=== PATIENT | male | born 1955 | race Caucasian/White ===

== ENCOUNTER → 2016-12-20 | Outpatient (CLI) | payer BC ==
[~2016-12-20] MED LIST: AMLO5TAB2 PO; HYDR25TA5 PO; RIVA1.5T PO
[2016-12-20 09:57] LABS: CHOLESTEROL/HDL RATIO 3.8
== END | disposition home or self-care (01) ==
LOC: C.LAB1850 08:23
PROVIDERS: ATTEND Nurse Practitioner Family
DX: Z00.00 Encounter for general adult medical examination without abnormal findings (principal); E78.00 Pure hypercholesterolemia, unspecified

== ENCOUNTER → 2017-01-01 | Outpatient (CLI) | payer BC ==
--- NOTE | 2017-01-01 12:23 | DIAGNOSTIC IMAGING REPORT ---
LEFT ANKLE MIN 3 VIEWS ROUTINE CLINICAL HISTORY: M25.572 Left ankle [id number] COMPARISON: None. DISCUSSION: There is bimalleolar soft tissue swelling. No fractures or dislocations are visualized. There are no erosive or destructive changes. There is a plantar calcaneal spur. IMPRESSION: Soft tissue swelling. No fractures identified. No destructive lesions are evident Electronically signed by: Isaías Watts M.D. 01/01/2017 12:21 PM Dictated Date/Time: 01/01/2017 12:21 PM
--- NOTE | 2017-01-01 12:24 | DIAGNOSTIC IMAGING REPORT ---
LEFT FOOT MIN 3 VIEWS ROUTINE CLINICAL HISTORY: Left foot pain COMPARISON: None. DISCUSSION: No acute fractures are visualized. There are degenerative changes at the level of the first metatarsal phalangeal joint with joint space narrowing and osteophyte formation. There is a plantar calcaneal spur. There are no erosive changes. IMPRESSION: 1. No acute fractures 2. 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 01/01/2017 12:23 PM Dictated Date/Time: 01/01/2017 12:22 PM
[2017-01-01 12:46] LABS: BASO % 0.2 %; BASO ABS # 0.01 K/uL (0-0.2); COMPLETE YES; EOS % 2.1 %; HEMATOCRIT 45.9 % (42-52); IG% 0.3 %; LYMPH % 33.4 %; LYMPH ABS # 2.05 K/uL (1.2-3.4); MEAN CELL VOLUME 94.4 fL (80-100); MEAN CORPUSCULAR HEMOGLOBIN 31.1 pg (25-34); MEAN CORPUSCULAR HGB CONC 32.9 g/dl (32-36); MEAN PLATELET VOLUME 9.8 fL (7.4-10.4); PLATELET COUNT 310 K/uL (130-400); RED BLOOD COUNT 4.86 M/uL (4.7-6.1); WHITE BLOOD COUNT 6.13 K/uL (4.8-10.8)
[2017-01-01 13:27] LABS: ALT/SGPT 28 U/L (12-78); AST/SGOT 21 U/L (15-37); BLOOD UREA NITROGEN 10 mg/dl (7-18); BUN/CREATININE RATIO 11.5 (10-20); CALCIUM 8.4 mg/dl (8.5-10.1); CARBON DIOXIDE 32 mmol/L (21-32); CHLORIDE 105 mmol/L (98-107); CREATININE 0.88 mg/dl (0.60-1.40); GLUCOSE 101 mg/dl (70-99); POTASSIUM 3.7 mmol/L (3.5-5.1); SODIUM 142 mmol/L (136-145); URIC ACID 9.5 mg/dl (2.6-7.2)
[2017-01-01 13:29] LABS: ALB/GLOB RATIO 0.9 (0.9-2); ALKALINE PHOSPHATASE 106 U/L (45-117); C-REACTIVE PROTEIN < 0.29 mg/dl (0-0.29); RHEUMATOID FACTOR < 10.0 U/mL (0-15)
[2017-01-01 14:01] LABS: LYME DISEASE AB IGG NEG (NEG); LYME DISEASE AB IGM NEG (NEG)
== END | disposition home or self-care (01) ==
LOC: C.RAD1850 11:37
PROVIDERS: ATTEND Nurse Practitioner Family
DX: M25.572 Pain in left ankle and joints of left foot (principal); M79.672 Pain in left foot

== ENCOUNTER → 2017-07-12 | Outpatient (CLI) | payer BC ==
[2017-07-12 12:07] LABS: BASO % 0.2 %; BASO ABS # 0.02 K/uL (0-0.2); COMPLETE YES; EOS % 1.3 %; HEMATOCRIT 48.7 % (42-52); IG% 0.2 %; LYMPH % 28.2 %; LYMPH ABS # 2.37 K/uL (1.2-3.4); MEAN CELL VOLUME 97.2 fL (80-100); MEAN CORPUSCULAR HEMOGLOBIN 33.1 pg (25-34); MEAN CORPUSCULAR HGB CONC 34.1 g/dl (32-36); MEAN PLATELET VOLUME 10.7 fL (7.4-10.4); MONO % 9.7 %; NEUT % 60.4 %; PLATELET COUNT 292 K/uL (130-400); RED BLOOD COUNT 5.01 M/uL (4.7-6.1); WHITE BLOOD COUNT 8.39 K/uL (4.8-10.8)
[2017-07-12 12:20] LABS: ALT/SGPT 25 U/L (12-78); BLOOD UREA NITROGEN 12 mg/dl (7-18); BUN/CREATININE RATIO 11.8 (10-20); CARBON DIOXIDE 32 mmol/L (21-32); CHLORIDE 100 mmol/L (98-107); CHOLESTEROL 195 mg/dl (0-200); CREATININE 0.99 mg/dl (0.60-1.40); GLUCOSE 97 mg/dl (70-99); POTASSIUM 3.5 mmol/L (3.5-5.1); SODIUM 137 mmol/L (136-145); URIC ACID 9.6 mg/dl (2.6-7.2)
[2017-07-12 12:23] LABS: ALB/GLOB RATIO 0.9 (0.9-2); ALKALINE PHOSPHATASE 102 U/L (45-117); AST/SGOT 23 U/L (15-37); CHOLESTEROL/HDL RATIO 2.5; HDL CHOLESTEROL 78 mg/dl; LDL CHOLESTEROL CALCULATED 95 mg/dl; TRIGLYCERIDES 112 mg/dl (0-150); VERY LOW DENSITY LIPOPROT CALC 22 mg/dl
== END | disposition home or self-care (01) ==
LOC: C.LAB1850 10:50
PROVIDERS: ATTEND Nurse Practitioner Family
DX: E78.00 Pure hypercholesterolemia, unspecified (principal); E79.0 Hyperuricemia without signs of inflammatory arthritis and tophaceous disease

== ENCOUNTER 2024-07-06 15:10 | Inpatient (IN) ==
[2024-07-06 15:44] LABS: Basophils # (auto) 0.03 K/uL (0.00-0.20); Basophils % (auto) 0.5 %; Eosinophils # (auto) 0.03 K/uL (0.00-0.50); Eosinophils % (auto) 0.5 %; Hematocrit (blood only) 42.7 % (42.0-52.0); Immature Granulocytes # (auto) 0.01 K/uL (0.01-0.20); Immature Granulocytes % (auto) 0.2 %; Lymphocytes # (auto) 1.33 K/uL (1.20-3.40); Lymphocytes % (auto) 21.3 %; Mean Corpuscular Hemoglobin 35.1 pg (25.0-34.0); Mean Corpuscular Hgb Conc 35.1 g/dL (32.0-36.0); Mean Platelet Volume 11.4 fL (9.4-12.4); Monocytes # (auto) 0.61 K/uL (0.11-0.59); Monocytes % (auto) 9.8 %; Neutrophils # (auto) 4.24 K/uL (1.40-6.50); Neutrophils % (auto) 67.7 %; Platelet Count 227 K/uL (130-400); RDW Coefficient of Variation 13.9 % (11.5-14.5); RDW Standard Deviation 51.1 fL (36.4-46.3); Red Blood Count 4.27 M/uL (4.70-6.10); White Blood Count 6.25 K/ul (4.8-10.8)
--- NOTE | 2024-07-06 16:01 | XRay Report ---
XR chest 1V not portable HISTORY: 68 years-old Male Weakness COMPARISON: None TECHNIQUE: PA view of chest FINDINGS: Metallic density coil type devices project over the upper chest. Cortex silhouette is upper limits of normal in size. Mild right hemidiaphragmatic elevation. No pneumothorax, pleural effusion or airspac e consolidation. Bones appear grossly intact. IMPRESSION: No acute process. ACT 112: Negative or not required by law. The above report was generated using voice recognition software. It may contain grammatical, syntax o r spelling errors. Electronically signed by: Thomas Khanna M.D. 07/06/2024 4:00 PM
[2024-07-06 16:11] LABS: Troponin I High Sensitivity 24.3 pg/ml (0-20)
[2024-07-06 16:13] LABS: INR 1.1 (0.9-1.1); Partial Thromboplastin Ratio 0.9; Partial Thromboplastin Time 23 Seconds (21-31); Prothrombin Time 11.4 Seconds (9.0-12.0)
[2024-07-06 16:20] LABS: Thyroid Stimulating Hormone 1.787 uIu/ml (0.300-4.500)
[2024-07-06 16:26] LABS: Albumin Globulin Ratio 1.3 (0.9-2); BUN Creatinine Ratio 17.3 (10-20); Bilirubin,Total 2.1 mg/dl (0.2-1.0); Calcium 8.8 mg/dl (8.6-10.3); Creatinine Clr Calc Pharmacy 99.3 ml/min; Magnesium 1.6 mg/dl (1.7-2.4); Potassium 3.8 mmol/L (3.5-5.1)
[2024-07-06] MEDS: SODIUM CHLORIDE 0.9% 1,000 ML IV ONE (17:23)
--- NOTE | 2024-07-06 17:23 | Emergency Department Note ---
Impression & Plan Bilateral leg weakness, Rhabdomyolysis, Elevated liver function tests ED Provider Note Name: HAYDE KISER Age: 68 Sex: Male Arrives Via: Walk-In Informant: Patient ED Provider: Eliud Valdez MD Chief Complaint: Leg weakness Impression: As per impressions above Medical Decision Makin-year-old gentleman arrives for evaluation of gradually worsening bilateral leg weakness primarily in the large muscle groups. He has ability to raise legs off bed but does not have much strength against them. Patellar reflexes are still somewhat intact. Did recently have a viral illness this concern for Guillain-Marks but given the elevated CK I suspect this is more of a rhabdomyolysis with possible viral inflammatory condition. This would also be more consistent with mildly elevated LFTs. He is not having any abdominal pain or tenderness palpation thus CT imaging of the abdomen pelvis is not necessary at this time. Given the weakness and the rhabdomyolysis will need to bring in for further evaluation. Triage/Nursing Notes reviewed by Me Differential:Infection, dehydration, metabolic abnormality, hypo/hyperglycemia, electrolyte disturbance, anemia, hypoxia, cardiac sources, intracerebral event, toxicologic, neurologic, as well as other pathologies. Vital Signs: reviewed and remarkable for mild hypertension on arrival Interventions: Normal saline bolus 1 L IV Labs:ED labs Reviewed by me and remarkable for moderately elevated LFTs compared to baseline. Elevated CK Consults:Discussed with Dr. Vásquez of neurology. Given the patient's intact patellar reflexes and weakness being more and larger muscle groups mid and distal seems unlikely this is Guillain-Marks at this time. Suggest wider inflammatory marker workup. Discussed with Dr. Palmer of hospitalist service. He will evaluate further. I passed long suggestion for inflammatory marker workup. Plan: Disposition:Hospitalization. Condition: Good History of Present Illness: 68-year-old male arrives for evaluation of bilateral leg weakness. Patient notes for the last 2 to 3 days worsening weakness. He feels like he cannot get up and down stairs normally. This morning though symptoms were significantly worse. Even with a cane he is having trouble getting around. He states both legs. While he can move them and feel them he just does not have any strength. Denies any headache, neck pain, fevers, chills, back pain, abdominal pain, nausea, vomiting, fevers, chills or other concerning signs or symptoms. Admits he has not been eating or drinking well the last 2 days because it is hard to get around. Denies any falls, trauma, injuries. Denies any hip pain. History of sciatica a few years ago but is not having any pain at this time. Patient notes that he had been seen by his PCP about 3 weeks ago. He got the flu shot at that point and notes he was very sick for about 2 days afterwards though has since recovered. No recent gastroenteritis symptoms. Past Medical History: Chronic transaminitis, obesity, gout, hypertension, dyslipidemia Home Medications:See Below Allergies:nkda Vitals:Blood Pressure: 150/90, Pulse 57, RR 16, T 36.5C, O2 96% on RA Physical Exam: GENERAL: Patient is well appearing and in no acute distress. Dehydrated appearing RESPIRATORY: No dyspnea. Clear to auscultation and equal bilaterally. CARDIOVASCULAR: Regular rate and rhythm.No murmur appreciated. GASTROINTESTINAL: Abdomen soft, non-tender, no peritonitis. EXTREMITIES: Normal motion all extremities, no cyanosis, non pitting bilateral ankle edema with some venous stasis findings NEUROLOGIC: Alert and oriented. Patient is some mildly decreased strength of bilateral legs 4 out of 5 more in proximal muscle groups with 5 out of 5 in the distal. Has reflexes bilateral patellar. SKIN: No rash, no jaundice, no diaphoresis. PSYCH: Appropriate GCS: 15 ED Course: Times/Reassessments: Patient is feeling well but is agreeable and somewhat resigned to being hospitalized given the weakness he is having. Eliud Valdez MD Past Med/Surg History Problem List (Updated 07/06/24 @ 23:22 by Eliud Valdez MD) Elevated liver function tests (Acute) Rhabdomyolysis (Acute) Bilateral leg weakness (Acute) Bilateral leg weakness Transaminitis Obesity (Chronic) Elevated liver enzymes Chronic gout Polyp of gallbladder monitoring with imaging Benign essential hypertension (Chronic) Hypercholesterolemia (Chronic) Medical History (Updated 07/06/24 @ 23:22 by Eliud Valdez MD) History of COVID-21 january 2022: moderate weakness. no current issues. Colon polyps Deep vein thrombosis ~2011 - LLE - r/t injury - treated w/ AC x 6 mo History of actinic keratosis Surgical History S/P cataract surgery right eye History of surgical procedure on eye proper using laser History of surgery left cataract History of tonsillectomy and adenoidectomy History of colonoscopy Family History Grandfather (Paternal) Myocardial infarction Grandfather (Maternal) Myocardial infarction Uncle Prostate cancer Family history of diabetes mellitus Grandmother (Maternal) Ovarian cancer Father End stage kidney disease Mother End stage kidney disease Arthritis Denies family history of Bipolar disorder Colorectal cancer Social History Smoking Status: Never smoker Second Hand Exposure: No; Do You Dip or Chew Tobacco: No; Hx Alcohol Use: Yes Alcohol type: beer Hx Substance Use: No Preferred Language: German Communication Ability: Effective Visual Impairment: No Limitations Hearing Ability: Normal Digital Product Manager Required: No Beliefs That Will Affect Care: None marital status: Current Living Situation: Spouse current occupational status: retired How many Children do You have: 2 Other Information That Helps Us Care for You: No Feels Safe at Home: Yes Safety Concerns: Feels Safe At This Time Childhood Exposure to Second-Hand Smoke: Yes Diet: regular Diet Comment: regular caffeine: Yes during the past year weight has: decreased > 10 lbs Dental Care, Regularly: Yes Physical Activity Frequency: Daily Physical Activity Frequency Comment: Walking Seatbelt Use: always Sunscreen Use: Yes Assistive Devices: Glasses Allergies Allergies Allergy/AdvReac Type Severity Reaction Status Date / Time No Known Drug Allergies Allergy Verified 06/24/24 17:06 Home Meds Home Medications Medication Instructions Recorded Confirmed aspirin 81 mg tablet,delayed 81 mg PO QAM #30 tabs 12/17/18 07/06/24 release omega 8-vsd-iqp-fish oil 1,000 mg 1 cap PO Q2D 05/15/19 07/06/24 (120 mg-180 mg) capsule (Fish Oil) losartan 25 mg tablet 25 mg PO BID 07/06/24 07/06/24 Previous Rx's Medication Instructions Recorded peg 3350-sod sulf,[id number]-oea See Rx Instructions PO .COMPLEX #2 05/14/24 178.7-7.3-0.5-1.12-0.9 gram oral mL soln (Suflave) atorvastatin 10 mg tablet 10 mg PO QAM #90 tabs 05/19/24 colchicine 0.6 mg tablet 0.6 mg PO BID #180 tabs 05/19/24 Results & Data (ED) Vital Signs Vital Signs - 24 hr 07/06/24 15:18 07/06/24 17:12 07/06/24 17:17 Temperature 36.5 C Temperature Source Skin Pulse Rate 58 L 54 L Pulse Rate [Apical] 57 L Pulse Rate from SpO2 Sensor Pulse Rhythm [Apical] Regular Pulse Strength [Apical] Normal Respiratory Rate 21 16 Respiratory Effort / Characteristics Non-Labored Spontaneous Non-Labored Respiratory Depth Normal Normal Respiratory Pattern Regular Blood Pressure 171/77 H Blood Pressure [Right Arm] 150/90 H Blood Pressure Mean 108 Blood Pressure Mean [Right Arm] 110 Blood Pressure Position [Right Arm] Lying Pulse Oximetry 97 96 Oxygen Delivery Method Room Air Room Air Sepsis Recent Fever Within 48 Hours No Sepsis New/Unexplained Change in Mental Status N/A Sepsis Action Taken by Nursing No Action Required 07/06/24 17:54 07/06/24 18:47 07/06/24 19:00 Temperature Temperature Source Pulse Rate 55 L Pulse Rate [Apical] 56 L 60 Pulse Rate from SpO2 Sensor 55 L Pulse Rhythm [Apical] Regular Regular Pulse Strength [Apical] Normal Normal Respiratory Rate 16 16 16 Respiratory Effort / Characteristics Non-Labored Non-Labored Respiratory Depth Normal Normal Respiratory Pattern Regular Blood Pressure 147/83 H Blood Pressure [Right Arm] 141/72 H 147/83 H Blood Pressure Mean 104 Blood Pressure Mean [Right Arm] 95 104 Blood Pressure Position [Right Arm] Lying Lying Pulse Oximetry 98 97 100 Oxygen Delivery Method Room Air Room Air Room Air Sepsis Recent Fever Within 48 Hours Sepsis New/Unexplained Change in Mental Status Sepsis Action Taken by Nursing Laboratory Data 07/06/24 15:29 07/06/24 15:29 Lab Results 07/06/24 07/06/24 07/06/24 Range/Units 15:29 15:29 17:18 WBC 6.25 (4.8-10.8) K/ul RBC 4.27 L (4.70-6.10) M/uL Hgb 15.0 (14.0-18.0) g/dl Hct 42.7 (42.0-52.0) % MCV 100.0 (80.0-100.0) fL MCH 35.1 H (25.0-34.0) pg MCHC 35.1 (32.0-36.0) g/dL RDW Std Deviation 51.1 H (36.4-46.3) fL RDW Coeff of Michell 13.9 (11.5-14.5) % Plt Count 227 (130-400) K/uL MPV 11.4 (9.4-12.4) fL Immature Gran % (Auto) 0.2 % Neut % (Auto) 67.7 % Lymph % (Auto) 21.3 % [place] % (Auto) 9.8 % Eos % (Auto) 0.5 % Baso % (Auto) 0.5 % Neut # (Auto) 4.24 (1.40-6.50) K/uL Lymph # (Auto) 1.33 (1.20-3.40) K/uL [place] # (Auto) 0.61 H (0.11-0.59) K/uL Eos # (Auto) 0.03 (0.00-0.50) K/uL Baso # (Auto) 0.03 (0.00-0.20) K/uL Immature Gran # (Auto) 0.01 (0.01-0.20) K/uL ESR 30 H (0-20) mm/hr PT 11.4 (9.0-12.0) Seconds INR 1.1 (0.9-1.1) APTT 23 (21-31) Seconds PTT Ratio 0.9 Sodium 140 (136-145) mmol/L Potassium 3.8 (3.5-5.1) mmol/L Chloride 103 (98-107) mmol/L Carbon Dioxide 25 (21-32) mmol/L Anion Gap 12 H (3-11) BUN 13 (6-23) mg/dl Creatinine 0.75 (0.6-1.4) mg/dl Est Cr Clr Drug Dosing 99.3 ml/min eGFR 98.30 BUN/Creatinine Ratio 17.3 (10-20) Glucose 80 (70-99(Fasting)) mg/dl Calcium 8.8 (8.6-10.3) mg/dl Magnesium 1.6 L (1.7-2.4) mg/dl Total Bilirubin 2.1 H (0.2-1.0) mg/dl AST 259 H (13-39) U/L ALT 177 H (7-52) U/L Alkaline Phosphatase 140 H (34-104) U/L Total Creatine Kinase 1799 H (30-223) U/L Troponin I High Sens 24.3 H (0-20) pg/ml C-Reactive Protein 0.63 H Cancelled (0-0.5) mg/dl Total Protein 7.0 (6.0-8.3) gm/dl Albumin 4.0 (3.4-5.0) gm/dl Globulin 3.0 (2.5-4.0) gm/dl Albumin/Globulin Ratio 1.3 (0.9-2) TSH 1.787 (0.300-4.500) uIu/ml Urine Color Dark Yellow Urine Appearance Clear (Clear) Urine pH 5.5 (4.5-7.5) Ur Specific [place] 1.016 (1.000-1.030) Urine Protein 1+ H (Negative) Urine Glucose (UA) Negative (Negative) Urine Ketones Trace H (Negative) Urine Blood Negative (Negative) Urine Nitrite Negative (Negative) Urine Bilirubin 1+ H (Negative) Urine Urobilinogen Negative (Negative) Ur Leukocyte Esterase Negative (Negative) Urine WBC (Auto) 0-5 (0-5) /hpf Urine RBC (Auto) 0-2 (0-2) /hpf U Hyaline Cast (Auto) 6-10 H (0-2) /lpf U Epithel Cells (Auto) 0-2 (0-2) /hpf Urine Bacteria (Auto) None Seen (None Seen) Urine Mucus Present A (None Prsent) Administered Medications Colchicine (Colchicine 0.6 Mg Tab) 0.6 mg PO BID [facility] Stop: 08/05/24 21:13 Last Admin: 07/06/24 21:58 Dose: 0.6 mg Documented By: PORSHA Losartan Potassium (Losartan Potassium 25 Mg Tab) 25 mg PO BID [facility] Stop: 08/05/24 21:13 Last Admin: 07/06/24 21:58 Dose: 25 mg Documented By: PORSHA Discontinued Medications Sodium Chloride (Nss) 1,000 mls @ 999 mls/hr IV .Q1H1M ONE Stop: 07/06/24 18:21 Last Infusion: 07/06/24 20:01 Dose: Infused Documented By: Admin: 07/06/24 17:23 Dose: 999 mls/hr Documented By: [employer] Data Radiologist's Impression: Chest X-Ray 12/02/24 15:25 XR chest 1V not portable HISTORY: 68 years-old Male Weakness COMPARISON: None TECHNIQUE: PA view of chest FINDINGS: Metallic density coil type devices project over the upper chest. Cortex silhouette is upper limits of normal in size. Mild right hemidiaphragmatic elevation. No pneumothorax, pleural effusion or airspace consolidation. Bones appear grossly intact. IMPRESSION: No acute process. ACT 112: Negative or not required by law. The above report was generated using voice recognition software. It may contain grammatical, syntax or spelling errors. Electronically signed by: Thomas Khanna M.D. 07/06/2024 4:[address] 07/06/24 17:21 INDICATION: Bilateral leg numbness. COMPARISON: No relevant priors available TECHNIQUE: Axial CT images of the head were obtained without IV contrast. Coronal and sagittal reformations were reviewed. FINDINGS: Cedeño-white differentiation is relatively preserved. No mass, mass effect or midline shift. Mild chronic ischemic white matter changes. Mild frontal cortical atrophy. No evidence of acute large territorial infarction or acute intracranial hemorrhage. Ventricles appear normal in size. Basal cisterns are patent. No depressed calvarial fracture. IMPRESSION: No acute intracranial process. Electronically signed by [place]ch [place] 07-06-2024 5:45 PM Discharge Plan Visit Data Chief Complaint: Leg Weakness, Bilateral Stated Complaint: TROUBLE WALKING, LEG NUMBNESS AND WEAKNESS ED Provider: Eliud Valdez Discharge Problem: Bilateral leg weakness, Rhabdomyolysis, Elevated liver function tests Patient Disposition: Admitted As Inpatient Discharge Instructions Interventions: ED Discharge Assessment Last Done: 07/06/24 21:14 Discharge Problem: Rhabdomyolysis Qualifiers: Rhabdomyolysis type: non-traumatic Qualified Code(s): M62.82 - Rhabdomyolysis
[2024-07-06 17:44] LABS: Appearance Urine Clear (Clear); Bacteria Urine Automated None Seen (None Seen); Bilirubin Urine 1+ (Negative); Blood Urine Negative (Negative); Color Urine Dark Yellow; Epithelial Cell Urine Auto 0-2 /hpf (0-2); Glucose Urine UA Negative (Negative); Ketones Urine Trace (Negative); Leukocyte Esterase Urine Negative (Negative); Mucus Urine Present (None Prsent); Nitrite Urine Negative (Negative); Protein Urine 1+ (Negative); RBC Urine Automated 0-2 /hpf (0-2); Specific Gravity Urine 1.016 (1.000-1.030); Urobilinogen Urine Negative (Negative); WBC Urine Automated 0-5 /hpf (0-5); pH Urine 5.5 (4.5-7.5)
--- NOTE | 2024-07-06 17:45 | CT Scan Report ---
INDICATION: Bilateral leg numbness. COMPARISON: No relevant priors available TECHNIQUE: Axial CT images of the head were obtained without IV contrast. Coronal and sagittal reformations were reviewed. FINDINGS: Cedeño-white differentiation is relatively preserved. No mass, mass effect or midline shift. Mild chronic ischemic white matter changes. Mild frontal cortical atrophy. No evidence of acute large territorial infarction or acute intracranial hemorrhage. Ventricles appear normal in size. Basal cisterns are patent. No depressed calvarial fracture. IMPRESSION: No acute intracranial process. Electronically signed by [place]ch [place] 07-06-2024 5:45 PM
--- NOTE | 2024-07-06 18:47 | History & Physical Report ---
Date of Service July 06, 2024 Assessment & Plan (1) Bilateral leg weakness: Plan: Concerning for myositis with elevated CK vs. Guillain [place] Syndrome with lack of reflexes ER discussed with neurology and recommend labs for myositis to be sent at this time, will add myositis specific antibody panel Precipitating event possibly diarrheal illness vs. influenza vaccination Hold statin Consult neurology for ongoing recommendations (2) Transaminitis: Plan: Suspect this is related to suspected myositis - no RUQ pain on exam to warrant imaging at this time. Plan Gout without acute flare - continue colchicine Hyperlipidemia - atorvastatin on hold as above HTN - Continue losartan VTE Prophylaxis - low risk unless prolonged stay Diet - regular Disposition - admit to med/surg Admission and Anticipated Discharge Date Admission Date: July 06, 2024 History of Present Illness Chief Complaint: Bilateral leg weakness Primary Care Provider: Tenzin Mendoza, ZAKIA, BRADY Jason Mcintosh is a 68 year old male who presents to the ER with bilateral lower extremity weakness. He reports this started 4 days ago on Saturday with progressively worse weakness throughout the day and he had to ask his for a cane to walk by the end of the day. No pain, numbness or tingling just mainly a peripheral muscle leg weakness. No weakness in his upper extremity. He is left handed and the left side seems worse than the right but both are much worse than baseline. He notes recently have the influenza vaccine on June 24 and felt fatigued and worn out for 4 days following this with some associated diarrhea. On June 29 he had to stand for a long time for a memorial service and was unable to due to his legs feeling like they were going to give way however he seemed to improve from these events with suddenly getting worse last Saturday as described above. No recent changes of medications (atorvastatin has been long standing). No fever, chills, respiratory or urinary symptoms. No change in speech, hearing or vision. Apart from the diarrhea no other gastrointestinal symptoms. No family or personal history of autoimmune disease. He drinks alcohol daily with 2 beers a day and a spirit before bed. He occasionally will give up for lent without any concerns for withdrawal. Allergies Allergy/AdvReac Type Severity Reaction Status Date / Time No Known Drug Allergies Allergy Verified 06/24/24 17:06 Home Medications Medication Instructions Recorded Confirmed Type aspirin 81 mg tablet,delayed 81 mg PO QAM #30 tabs 12/17/18 07/06/24 History release omega 5-elg-sri-fish oil 1,000 mg 1 cap PO Q2D 05/15/19 07/06/24 History (120 mg-180 mg) capsule (Fish Oil) peg 3350-sod sulf,[id number] See Rx Instructions PO .COMPLEX #2 05/14/24 Rx 178.7-7.3-0.5-1.12-0.9 gram oral mL soln (Suflave) atorvastatin 10 mg tablet 10 mg PO QAM #90 tabs 05/19/24 07/06/24 Rx colchicine 0.6 mg tablet 0.6 mg PO BID #180 tabs 05/19/24 07/06/24 Rx losartan 25 mg tablet 25 mg PO BID 07/06/24 07/06/24 History Past Med/Surg History Problem List (Updated 07/06/24 @ 23:22 by Eliud Valdez MD) Elevated liver function tests (Acute) Rhabdomyolysis (Acute) Bilateral leg weakness (Acute) Bilateral leg weakness Transaminitis Obesity (Chronic) Elevated liver enzymes Chronic gout Polyp of gallbladder monitoring with imaging Benign essential hypertension (Chronic) Hypercholesterolemia (Chronic) Medical History (Updated 07/06/24 @ 23:22 by Eliud Valdez MD) History of COVID-21 january 2022: moderate weakness. no current issues. Colon polyps Deep vein thrombosis ~2011 - LLE - r/t injury - treated w/ AC x 6 mo History of actinic keratosis Surgical History S/P cataract surgery right eye History of surgical procedure on eye proper using laser History of surgery left cataract History of tonsillectomy and adenoidectomy History of colonoscopy Family History Grandfather (Paternal) Myocardial infarction Grandfather (Maternal) Myocardial infarction Uncle Prostate cancer Family history of diabetes mellitus Grandmother (Maternal) Ovarian cancer Father End stage kidney disease Mother End stage kidney disease Arthritis Denies family history of Bipolar disorder Colorectal cancer Social History Smoking Status: Never smoker Second Hand Exposure: No; Do You Dip or Chew Tobacco: No; Hx Alcohol Use: Yes Alcohol type: beer Hx Substance Use: No Preferred Language: Macedonian Communication Ability: Effective Visual Impairment: No Limitations Hearing Ability: Normal Alteration Specialist Required: No Beliefs That Will Affect Care: None marital status: Current Living Situation: Spouse current occupational status: retired How many Children do You have: 2 Other Information That Helps Us Care for You: No Feels Safe at Home: Yes Safety Concerns: Feels Safe At This Time Childhood Exposure to Second-Hand Smoke: Yes Diet: regular Diet Comment: regular caffeine: Yes during the past year weight has: decreased > 10 lbs Dental Care, Regularly: Yes Physical Activity Frequency: Daily Physical Activity Frequency Comment: Walking Seatbelt Use: always Sunscreen Use: Yes Assistive Devices: Glasses Review of Systems Review of Systems: All systems reviewed & are unremarkable except as noted in HPI & below Gets full quickly Physical Exam Constitutional: WD/WN, vitals as above Eyes: PERRL, conjunctivae normal, anicteric sclerae ENMT: external ear and nose normal, oropharynx normal Respiratory: normal respiratory effort, lungs clear to auscultation Cardiovascular: Rate/Rhythm: regular rate and regular rhythm Heart Sounds: no murmur Extremities: normal capillary refill and + pedal edema (1+ bilateral equal); no calf tenderness Gastrointestinal (Abdomen): normal bowel sounds, soft, nontender, no hepatosplenomegaly Skin: venous stasis changes bilaterally equal Neurologic: moves all extremities, + focal motor deficit (4+ left hip and knee flex, otherwise 5/5 throughout) and awake; not confused Speech / Cognition: normal speech Motor/Sensory: no tremor, normal movement and no pronator drift Cranial Nerves: PERRL, EOM intact bilaterally, normal facial strength, tongue midline, able to rotate head bilaterally, able to elevate shoulders bilaterally, no nystagmus and symmetric palate elevation Coordination: normal nekhbj-wa-spis test Unable to illicit reflexes in upper or lower extremities Psychiatric: A+Ox3, euthymic affect Genitourinary: no CVA tenderness Results & Data Results & Data Vital Signs (Past 12 Hours) Vital Signs Temp Pulse Pulse Resp BP BP Pulse Ox 07/06/24 17:54 56 L 16 141/72 H 98 07/06/24 17:17 57 L 16 150/90 H 96 07/06/24 17:12 54 L 07/06/24 15:18 36.5 C 58 L 21 171/77 H 97 O2 Del Method 07/06/24 17:54 Room Air 07/06/24 17:17 Room Air 07/06/24 17:12 07/06/24 15:18 Room Air Laboratory Results Abnormal lab results 07/06/24 07/06/24 Range/Units 15:29 17:18 RBC 4.27 L (4.70-6.10) M/uL MCH 35.1 H (25.0-34.0) pg RDW Std Deviation 51.1 H (36.4-46.3) fL [place] # (Auto) 0.61 H (0.11-0.59) K/uL Anion Gap 12 H (3-11) Magnesium 1.6 L (1.7-2.4) mg/dl Total Bilirubin 2.1 H (0.2-1.0) mg/dl AST 259 H (13-39) U/L ALT 177 H (7-52) U/L Alkaline Phosphatase 140 H (34-104) U/L Total Creatine Kinase 1799 H (30-223) U/L Troponin I High Sens 24.3 H (0-20) pg/ml Urine Protein 1+ H (Negative) Urine Ketones Trace H (Negative) Urine Bilirubin 1+ H (Negative) U Hyaline Cast (Auto) 6-10 H (0-2) /lpf Urine Mucus Present A (None Prsent) Diagnostic Findings CT Head wo IV Contrast Bilateral leg numbness. COMPARISON: No relevant priors available TECHNIQUE: Axial CT images of the head were obtained without IV contrast. Coronal and sagittal reformations were reviewed. FINDINGS: Cedeño-white differentiation is relatively preserved. No mass, mass effect or midline shift. Mild chronic ischemic white matter changes. Mild frontal cortical atrophy. No evidence of acute large territorial infarction or acute intracranial hemorrhage. Ventricles appear normal in size. Basal cisterns are patent. No depressed calvarial fracture. IMPRESSION: No acute intracranial process. Medications Administered ER Medications Given: Normal saline 1000 ml bolus ECG Rate (beats per minute): 57 Rhythm: sinus bradycardia Findings: + 1st degree AV block Comparison ECG Date: no prior available Code Status & VTE Plan Code Status Full VTE Prophylaxis Plan VTE Prophylaxis will be ordered: No PG Care Time/CCT Total # of Minutes Spent Total Time Spent with Patient: Total time spent is greater than 50% in coordination of care (as documented) at patient's floor/unit and/or counseling patient: Coding Level of Care Code 38209 INT INP/OBS CARE 2MIN Diagnoses Bilateral leg weakness R29.898 Transaminitis R74.01
[2024-07-06 18:55] LABS: C Reactive Protein 0.63 mg/dl (0-0.5)
[2024-07-06] MEDS: COLCHICINE 0.6 MG TAB PO SCH (21:58)
[2024-07-06] MEDS: LOSARTAN POTASSIUM 25 MG TAB PO SCH (21:58)
[2024-07-07 07:22] LABS: Hematocrit (blood only) 36.4 % (42.0-52.0); Hemoglobin 12.8 g/dl (14.0-18.0); Mean Corpuscular Hemoglobin 35.1 pg (25.0-34.0); Mean Corpuscular Hgb Conc 35.2 g/dL (32.0-36.0); Mean Corpuscular Volume 99.7 fL (80.0-100.0); Mean Platelet Volume 11.5 fL (9.4-12.4); Platelet Count 176 K/uL (130-400); RDW Coefficient of Variation 13.4 % (11.5-14.5); RDW Standard Deviation 49.4 fL (36.4-46.3); Red Blood Count 3.65 M/uL (4.70-6.10); White Blood Count 5.34 K/ul (4.8-10.8)
[2024-07-07 07:39] LABS: Albumin Globulin Ratio 1.2 (0.9-2); BUN Creatinine Ratio 20.3 (10-20); Bilirubin,Total 2.4 mg/dl (0.2-1.0); Creatinine Clr Calc Pharmacy 108.1 ml/min; Globulin 2.6 gm/dl (2.5-4.0); Potassium 3.6 mmol/L (3.5-5.1); Total Protein 5.6 gm/dl (6.0-8.3)
--- NOTE | 2024-07-07 08:37 | Neurology Consultation ---
Date of Consultation July 07, 2024 Assessment & Plan (1) Weakness: (2) Rhabdomyolysis: (3) Elevated liver function tests: Plan The patient has a relatively acute (possibly subacute) onset of weakness roughly a week and a half post flu shot. On examination he has proximal and distal weakness, legs greater than arms with decreased reflexes. Certainly, a form of acute inflammatory neuropathy is possible (Guillain-[place] syndrome or variant). With his significantly elevated CK, an inflammatory myopathy cannot be excluded, although he does have distal weakness and his sed rate is not significantly elevated. The patient has chronically elevated liver enzymes and does have significant alcohol usage. An alcoholic neuromyopathy is possible. He is doing reasonably well and still able to ambulate. He does not have any cranial nerve issues and he has no breathing problems. Recommendations: 1. Lumbar puncture under fluoroscopy to evaluate for albuminocytologic disassociation. 2. Myositis labs have been ordered and are pending. I would add other inflammatory/rheumatologic/immunologic test such as an MARGO profile 3. I see no need for neuroimaging at this time but might reconsider depending on the above tests and his clinical course 4. EMG and nerve conduction studies could be obtained but these would have to be done as an outpatient. 5. Unless otherwise indicated, hold on IVIG at this time. 6. Physical therapy for strengthening and gait 7. Discontinue alcohol Overall, I spent a total of 120 minutes with this case including review of records, direct evaluation the patient at bedside, report generation, and discussion of the case with the patient at bedside, RN at bedside, and Dr. Jensen, including differential diagnosis and treatment options. History of Present Illness Reason for Consultation: Patient is a 68-year-old, who I was asked to see at the request of Dr. Palmer, for neurologic evaluation regarding new onset weakness. Requesting Physician: Dr. Palmer Attending Physician: Lemuel Jensen MD History of Present Illness This patient has a history of hypertension, dyslipidemia, and gout for years. He has been on 81 mg aspirin tablet daily, losartan 25 mg twice daily, and atorvastatin 10 mg daily. He has no history of obvious cardiac or neurologic disease, does not have diabetes, and has not had a stroke or TIA. This patient has had elevated total bilirubin and liver enzymes for several years. On June 22, he had routine laboratory studies by his PCP and was noted to have a total bilirubin of 1.7 with an AST of 167, ALT 118, and alk phos of 125. On June 24, the patient had a flu shot at his PCP office. Over the next several days he had flulike symptoms with fatigue and achiness "all over". By the he was feeling a little bit better. In the later morning, he was outside standing as part of a color guard. After standing for almost an hour his legs began somewhat weak and shaky. He had to go sit down. Over the next several days he was fairly stable and not noticed too much in the way of weakness in his legs. On the morning of July 03, he woke up and had difficulty walking. He felt his legs were weak and he was stumbling. He did not fall. He felt that his arms were asymptomatic. He did not have any numbness, tingling, or pain in the lower extremities and he had no increase in low back pain. The patient has had some low back pain and sciatic symptoms down the back of his leg left greater than right on and off for the last 2 years. 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 Thinks that these activities have led to his low back and sciatic symptoms Each morning, July 04 and July 05 he woke up a little weaker than the day before and his legs. By the evening, he always felt a little bit better. On July 06, he woke up with worse weakness of his legs and he was encouraged to come to the emergency room by his PCP and . He arrived at the emergency room July 06 at 1518 with a temperature 36.5, pulse 58 and regular, respirate 21, blood pressure 171/77 and O2 saturation 97%. He was felt to have 4/5 strength proximally in the legs with strength spared in the arms and feet. Reflexes were decreased but apparently preserved. He had no lack of sensation and although he is balance was off he did not fall lower extremity edema (which he claims is chronic). CBC showed a normal white count, hemoglobin and hematocrit. Sed rate was 30 and CRP was 0.63. CHEM profile was remarkable for an alk phos of 140, AST of 259, ALT of 127, and a total bilirubin of 2.1. TSH was normal at 1.7 and urinalysis was unremarkable. CK was elevated at 1799. This morning, CBC and CHEM profile was unremarkable except for total bilirubin of 2.4, AST of 218, alk phos of 112, and ALT of 143. CK was 1465. This morning the patient has no complaint of pain or cramping. He feels that his legs are weak but not his arms. He has no spine pain, or headaches. He denies incontinence of urine or bowel, numbness or lack of sensation, vision issues, thinking problems, or speech deficits. He denies double vision, droopy eyelids, or breathing problems. Patient admits to drinking 2 beers at dinnertime plus a "cocktail" at 11:00 PM Allergies Allergy/AdvReac Type Severity Reaction Status Date / Time No Known Drug Allergies Allergy Verified 06/24/24 17:06 Home Medications Medication Instructions Recorded Confirmed Type aspirin 81 mg tablet,delayed 81 mg PO QAM #30 tabs 12/17/18 07/06/24 History release omega 2-uhv-lem-fish oil 1,000 mg 1 cap PO Q2D 05/15/19 07/06/24 History (120 mg-180 mg) capsule (Fish Oil) peg 3350-sod sulf,[id number] See Rx Instructions PO .COMPLEX #2 05/14/24 Rx 178.7-7.3-0.5-1.12-0.9 gram oral mL soln (Suflave) atorvastatin 10 mg tablet 10 mg PO QAM #90 tabs 05/19/24 07/06/24 Rx colchicine 0.6 mg tablet 0.6 mg PO BID #180 tabs 05/19/24 07/06/24 Rx losartan 25 mg tablet 25 mg PO BID 07/06/24 07/06/24 History Patient History Medical History History of COVID-21 january 2022: moderate weakness. no current issues. Colon polyps Deep vein thrombosis ~2011 - LLE - r/t injury - treated w/ AC x 6 mo History of actinic keratosis Surgical History S/P cataract surgery right eye History of surgical procedure on eye proper using laser History of surgery left cataract History of tonsillectomy and adenoidectomy History of colonoscopy Family History (Updated 07/07/24 @ 09:05 by José Antonio Vásquez MD) Grandfather (Paternal) Myocardial infarction Grandfather (Maternal) Myocardial infarction Uncle Prostate cancer Family history of diabetes mellitus Grandmother (Maternal) Ovarian cancer Father , age 83 with renal failure End stage kidney disease Mother Arthritis Denies family history of Bipolar disorder Colorectal cancer Social History (Updated 07/07/24 @ 09:07 by José Antonio Vásquez MD) Smoking Status: Never smoker Tobacco Type: Smokeless Tobacco (Dip or Chew) Cigarettes Per Day: He chewed from age 16 through age 30; Second Hand Exposure: No; Do You Dip or Chew Tobacco: No; Hx Alcohol Use: Yes Alcohol type: beer and hard liquor Alcohol Intake Frequency: 4 or More x per/Week Alcohol Intake Frequency Comment: 2 beers and 1 cocktail on average daily Hx Substance Use: No Preferred Language: Algerian Communication Ability: Effective Visual Impairment: No Limitations Hearing Ability: Normal Gun Stocker Required: No Beliefs That Will Affect Care: None marital status: Current Living Situation: Spouse current occupational status: retired 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) How many Children do You have: 2 Feels Safe at Home: Yes Childhood Exposure to Second-Hand Smoke: Yes Diet: regular Diet Comment: regular caffeine: Yes during the past year weight has: decreased > 10 lbs Dental Care, Regularly: Yes Physical Activity Frequency: Daily Physical Activity Frequency Comment: Walking Seatbelt Use: always Sunscreen Use: Yes Assistive Devices: Glasses Review of Systems Constitutional: + weakness; no fever and no fatigue Eyes: no diplopia, no eye pain and no worsening vision Ear, Nose, Mouth, Throat: no ear pain, no tinnitus, no hearing loss, no dizziness, no snoring, no hoarseness and no dysphagia Respiratory: no cough and no dyspnea Cardiovascular: no chest pain, no palpitations and no lightheadedness Gastrointestinal: no abdominal pain, no nausea and no vomiting Musculoskeletal: + back pain; no neck pain, no radicular pain, no joint pain and no myalgia Integumentary: no rash and no lesions Neurologic: + gait abnormality and + localized weakn ess; no generalized weakness, no tingling, no numbness, no tremor(s), no abnormal movements, no headache(s), no abnormal speech, no confusion and no memory loss Psychiatric: no depression, no irritability, no anxiety, no difficulty concentrating, no confusion and no hallucinations Endocrine: no fatigue and no flushing Hematologic / Lymphatic: no easy bleeding and no easy bruising Allergy / Immunological: no urticaria and no problem reported Exam (Neuro) Physical Exam: The patient is left-handed. The patient is awake, alert, and attentive. Speech is normal without any aphasia or dysarthria. Mentation and thought processes are intact, with full orientation and normal fund of knowledge. Mood and affect are normal and appropriate. Appearance and grooming are normal. Short and long-term memory are intact. Pupils are 3 mm bilaterally and reactive to light. Extraocular eye muscles are intact without nystagmus. Visual acuity and visual donald seem normal grossly to confrontation. There are no deficits to sensation in the face in all 3 distributions of the fifth cranial nerve bilaterally. Corneal reflexes are positive bilaterally. Facial strength and symmetry was normal bilaterally. Hearing seems intact grossly to voice and finger rub bilaterally. Palate moves well without asymmetry. There is normal sternocleidomastoid and trapezius strength bilaterally. Tongue is midline with good strength bilaterally. Neck has a full range of motion without discomfort. There are no cervical bruits bilaterally. There are no cranial or ocular bruits. Heart is without murmur. There is a regular rhythm and rate. Cervical, thoracic, and lumbar spine are nontender to palpation. Gait is slightly wide-based and slightly steppage in character bilaterally. He was cautious particularly with turns. Stance, however, with feet together and eyes open or closed was stable. With outstretched arms there is no drift. There are no resting, postural, or action tremors. There is no ataxia with finger to nose testing. There is good facility in the hands. No other abnormal involuntary movements are noted. Motor strength is 4+/5 diffusely in the arms bilaterally including deltoids, biceps, triceps, brachioradialis, wrist flexors and extensors, oyster worker, and intrinsic hand muscles. Motor strength is 4/5 diffusely in the legs bilaterally including hip flexors, quadriceps, hamstrings, gastrocnemius, tibialis anterior, tibialis posterior, and Peroneii muscles bilaterally. Toe extensors are 4/5. The limbs have good tone without rigidity or spasticity. There is no atrophy noted in the muscles. Muscle bulk is normal, there is no tenderness to palpation, no myotonia to percussion, and no fasciculations seen. Sensory examination is intact to touch and pin throughout all 4 limbs diffusely. Reflexes are 1/4 in the biceps, triceps, and quadriceps tendons bilaterally. Brachioradialis and Achilles tendon reflexes were absent bilaterally. Toes are downgoing with plantar stimulation bilaterally. There is peripheral edema noted in the feet to above the ankles bilaterally Results & Data Vital Signs (Past 12 Hours) Vital Signs Temp Pulse Resp BP Pulse Ox O2 Del Method 07/07/24 07:40 36.5 C 56 L 16 166/83 H 98 07/06/24 23:33 36.7 C 58 L 18 174/88 H 97 07/06/24 22:30 62 19 166/88 H 96 Room Air 07/06/24 22:00 64 17 173/95 H 97 Room Air 07/06/24 22:00 Room Air 07/06/24 22:00 36.6 C 07/06/24 21:57 69 18 153/85 H 98 Room Air 07/06/24 21:07 78 07/06/24 21:02 82 18 151/117 H 96 Room Air PG Care Time/CCT Total # of Minutes Spent Total Time Spent with Patient: Total time spent is greater than 50% in coordination of care (as documented) at patient's floor/unit and/or counseling patient: Coding Level of Care Code 86545 INT INP/OBS CARE 3/75MIN Diagnoses Weakness R53.1 Rhabdomyolysis M62.82 Rhabdomyolysis type: non-traumatic Elevated liver function tests R79.89 Time Spent (min) 120 (2) Rhabdomyolysis Rhabdomyolysis type: non-traumatic Qualified Code(s): M62.82 - Rhabdomyolysis
[2024-07-07 10:14] LABS: Folate (Folic Acid),Ser orPlas 5.6 ng/ml (>5.38)
[2024-07-07] MEDS: POTASSIUM CHLORIDE CRTAB 20 MEQ TABCR PO STA (10:28)
--- NOTE | 2024-07-07 10:28 | Hospitalist Progress Note ---
Date of Service July 07, 2024 Assessment & Plan (1) Bilateral leg weakness: (2) Elevated liver function tests: (3) Benign essential hypertension: (4) Hypercholesterolemia: (5) Chronic gout: (6) Rhabdomyolysis: (7) Hepatic steatosis: (8) Polyp of gallbladder: (9) Alcohol use disorder: Plan 68-year-old male with past medical history of hypertension, hyperlipidemia, gout, alcohol use, abnormal LFTs with hepatic steatosis and gallbladder polyp who presents to the ED with worsening bilateral lower extremity weakness with difficulty ambulating since patient had flu shot at his PCP office on July 02, 2024. #Bilateral lower extremity weakness #Rhabdomyolysis Neurology saw the patient Neurology suspects patient may have a form of acute inflammatory neuropathy (Guillain-Marks syndrome or variant) Myositis lab workup sent from ED: Results pending Neurology has recommended MARGO profile, lumbar puncture under fluoroscopy, PT/OT and EMG nerve conduction studies which can be obtained as outpatient Patient agreeable for LP: IR consulted for LP Routine labs for LP per neurology recommendations ordered TSH is 1.77 B12 is 214: B12 supplementation started Hold statin in light of rhabdomyolysis Monitor CK, hydrate with LR at 100 mL/h Await further neurology recommendations post LP #Abnormal LFTs/transaminitis #Hepatic steatosis #Gallbladder polyp #Alcohol use disorder Alcohol cessation counseling provided [facility] alcohol withdrawal protocol with Ativan as needed Thiamine plus folic acid plus multivitamin Check ultrasound of the abdomen INR is 1.1 Check hepatitis screen Transaminitis appears to be chronic but worsening Monitor LFTs #Essential hypertension #Hyperlipidemia Hold statin for now in light of rhabdomyolysis with elevated CK Continue losartan 25 mg p.o. twice daily #History of gout without acute flareup Patient is on colchicine at home Gout likely related to alcohol use Patient did have some loose stools: Hold colchicine for now #Hypomagnesemia Magnesium replacement Monitor levels CODE STATUS: Full code DVT prophylaxis: Start Lovenox 40 mg subcutaneous daily Care plan discussed with patient, nursing staff Admission and Anticipated Discharge Date Admission Date: July 06, 2024 Subjective Patient seen and examined H&P reviewed Labs reviewed Radiology reviewed Neurology consult and recommendations reviewed Patient states weakness is slightly better but still feeling weak and tired and requiring use of cane which she has not used in several years He denies any headache, dizziness, lightheadedness, chest pain, shortness of breath, fever, chills, nausea, vomiting, diarrhea, abdominal pain, urinary symptoms Social history: Lives at home with his . He is usually independent of ADLs. Lately has been requiring a cane. He denies tobacco use. Admits to drinking 2-3 beers a day with spirit at night Physical Exam Physical Exam: General: No acute distress Psych: Awake and alert HEENT: Anicteric sclera, moist oral mucosa CVS: Regular rate and rhythm Lungs: Bilateral air entry, no wheezing noted Abdomen: Soft, nontender, no rebound, no guarding Ext: 1+ lower extremity pitting edema noted, no calf tenderness Neuro: No focal motor deficits noted, strength is 4 out of 5 in all 4 extremities Results & Data Results & Data Vital Signs (Past 12 Hours) Vital Signs Temp Pulse Resp BP Pulse Ox O2 Del Method 07/07/24 07:40 36.5 C 56 L 16 166/83 H 98 07/06/24 23:33 36.7 C 58 L 18 174/88 H 97 07/06/24 22:30 62 19 166/88 H 96 Room Air Laboratory Results Laboratory Results - last 24 hr 07/06/24 07/06/24 07/06/24 15:29 15:29 17:18 WBC 6.25 RBC 4.27 L Hgb 15.0 Hct 42.7 MCV 100.0 MCH 35.1 H MCHC 35.1 RDW Std Deviation 51.1 H RDW Coeff of Michell 13.9 Plt Count 227 MPV 11.4 Immature Gran % (Auto) 0.2 Neut % (Auto) 67.7 Lymph % (Auto) 21.3 [place] % (Auto) 9.8 Eos % (Auto) 0.5 Baso % (Auto) 0.5 Neut # (Auto) 4.24 Lymph # (Auto) 1.33 [place] # (Auto) 0.61 H Eos # (Auto) 0.03 Baso # (Auto) 0.03 Immature Gran # (Auto) 0.01 ESR 30 H PT 11.4 INR 1.1 APTT 23 PTT Ratio 0.9 Sodium 140 Potassium 3.8 Chloride 103 Carbon Dioxide 25 Anion Gap 12 H BUN 13 Creatinine 0.75 Est Cr Clr Drug Dosing 99.3 eGFR 98.30 BUN/Creatinine Ratio 17.3 Glucose 80 Calcium 8.8 Magnesium 1.6 L Total Bilirubin 2.1 H AST 259 H ALT 177 H Alkaline Phosphatase 140 H Total Creatine Kinase 1799 H Troponin I High Sens 24.3 H C-Reactive Protein 0.63 H Cancelled Total Protein 7.0 Albumin 4.0 Globulin 3.0 Albumin/Globulin Ratio 1.3 2-IV-3-Methylglutar CoA Vitamin B12 Folate TSH 1.787 Urine Color Dark Yellow Urine Appearance Clear Urine pH 5.5 Ur Specific Burton 1.016 Urine Protein 1+ H Urine Glucose (UA) Negative Urine Ketones Trace H Urine Blood Negative Urine Nitrite Negative Urine Bilirubin 1+ H Urine Urobilinogen Negative Ur Leukocyte Esterase Negative Urine WBC (Auto) 0-5 Urine RBC (Auto) 0-2 U Hyaline Cast (Auto) 6-10 H U Epithel Cells (Auto) 0-2 Urine Bacteria (Auto) None Seen Urine Mucus Present A MARGO Screen Anti-Tanika-1 Ab (IB) EJ Antibody OJ Antibody Mi-2-Alpha Ab Mi-2-Beta Ab NXP-[address]-12 Antibody SRP Ab MDA5 Ab Myositis TIF1-gamma Ab SS-A/Ro Antibody SS-B/La Antibody Sm (Wang) Antibody SKILLS TRAINER Antibody Scl-70 Scleroderma Ab Anti-cN-1A Antibody Anti-ds DNA (Crithidia) Chromatin Antibody Anti-Centromere Ab Thyroid Antimicrosomal Anti-Cardiolipin IgG Ab Anti-Cardiolipin IgA Ab Anti-Cardiolipin IgM Ab Complement C3 Complement C4 07/06/24 07/07/24 07/07/24 20:12 06:45 09:04 WBC 5.34 RBC 3.65 L Hgb 12.8 L Hct 36.4 L MCV 99.7 MCH 35.1 H MCHC 35.2 RDW Std Deviation 49.4 H RDW Coeff of Michell 13.4 Plt Count 176 MPV 11.5 Immature Gran % (Auto) Neut % (Auto) Lymph % (Auto) [place] % (Auto) Eos % (Auto) Baso % (Auto) Neut # (Auto) Lymph # (Auto) [place] # (Auto) Eos # (Auto) Baso # (Auto) Immature Gran # (Auto) ESR PT INR APTT PTT Ratio Sodium 140 Potassium 3.6 Chloride 106 Carbon Dioxide 29 Anion Gap 5 BUN 14 Creatinine 0.69 Est Cr Clr Drug Dosing 108.1 eGFR 100.80 BUN/Creatinine Ratio 20.3 H Glucose 87 Calcium 8.0 L Magnesium 1.5 L Total Bilirubin 2.4 H AST 218 H ALT 143 H Alkaline Phosphatase 112 H Total Creatine Kinase 1465 H Troponin I High Sens C-Reactive Protein Total Protein 5.6 L Albumin 3.0 L Globulin 2.6 Albumin/Globulin Ratio 1.2 3-NZ-7-Methylglutar CoA Pending Vitamin B12 214 Folate 5.60 TSH Urine Color Urine Appearance Urine pH Ur Specific Burton Urine Protein Urine Glucose (UA) Urine Ketones Urine Blood Urine Nitrite Urine Bilirubin Urine Urobilinogen Ur Leukocyte Esterase Urine WBC (Auto) Urine RBC (Auto) U Hyaline Cast (Auto) U Epithel Cells (Auto) Urine Bacteria (Auto) Urine Mucus MARGO Screen Pending Anti-Tanika-1 Ab (IB) Pending EJ Antibody Pending OJ Antibody Pending Mi-2-Alpha Ab Pending Mi-2-Beta Ab Pending NXP-[address]-12 Antibody Pending SRP Ab Pending MDA5 Ab Pending Myositis TIF1-gamma Ab Pending SS-A/Ro Antibody Pending SS-B/La Antibody Pending Sm (Wang) Antibody Pending SKILLS TRAINER Antibody Pending Scl-70 Scleroderma Ab Pending Anti-cN-1A Antibody Pending Anti-ds DNA (Crithidia) Pending Chromatin Antibody Pending Anti-Centromere Ab Pending Thyroid Antimicrosomal Pending Anti-Cardiolipin IgG Ab Pending Anti-Cardiolipin IgA Ab Pending Anti-Cardiolipin IgM Ab Pending Complement C3 Pending Complement C4 Pending Diagnostic Findings Chest X-Ray 07/06/24 15:25 XR chest 1V not portable HISTORY: 68 years-old Male Weakness COMPARISON: None TECHNIQUE: PA view of chest FINDINGS: Metallic density coil type devices project over the upper chest. Cortex silhouette is upper limits of normal in size. Mild right hemidiaphragmatic elevation. No pneumothorax, pleural effusion or airspace consolidation. Bones appear grossly intact. IMPRESSION: No acute process. ACT 112: Negative or not required by law. The above report was generated using voice recognition software. It may contain grammatical, syntax or spelling errors. Electronically signed by: Thomas Khanna M.D. 07/06/2024 4:[address] 07/06/24 17:21 INDICATION: Bilateral leg numbness. COMPARISON: No relevant priors available TECHNIQUE: Axial CT images of the head were obtained without IV contrast. Coronal and sagittal reformations were reviewed. FINDINGS: Cedeño-white differentiation is relatively preserved. No mass, mass effect or midline shift. Mild chronic ischemic white matter changes. Mild frontal cortical atrophy. No evidence of acute large territorial infarction or acute intracranial hemorrhage. Ventricles appear normal in size. Basal cisterns are patent. No depressed calvarial fracture. IMPRESSION: No acute intracranial process. Electronically signed by [place]ch [place] 07-06-2024 5:45 PM PG Care Time/CCT Total # of Minutes Spent Total Time Spent with Patient: Total time spent is greater than 50% in coordination of care (as documented) at patient's floor/unit and/or counseling patient: Coding Level of Care Code 59717 SUB INP/OBS CARE 3/50MIN Diagnoses Bilateral leg weakness R29.898 Elevated liver function tests R79.89 Benign essential hypertension I10 Hypercholesterolemia E78.00 Chronic gout [id number] Rhabdomyolysis M62.82 Rhabdomyolysis type: non-traumatic Hepatic steatosis K76.0 Polyp of gallbladder K82.4 Alcohol use disorder F10.90 (6) Rhabdomyolysis Rhabdomyolysis type: non-traumatic Qualified Code(s): M62.82 - Rhabdomyolysis
[2024-07-07] MEDS: LACTATED RINGER'S 1,000 ML IV SCH (10:29)
[2024-07-07] MEDS: MAGNESIUM SULFATE / D5W 1 GM/100 ML BAG IV SCH (10:29)
[2024-07-07] MEDS: THIAMINE HCL 500 MG in SODIUM CHLORIDE 0.9% 50 ML IV STA (13:00)
--- NOTE | 2024-07-07 13:44 | Electrocardiogram Report ---
Test Reason : Blood Pressure : */* mmHG Vent. Rate : 57 BPM Atrial Rate : 57 BPM P-R Int : 224 ms QRS Dur : 146 ms QT Int : 490 ms P-R-T Axes : * -71 13 degrees QTcB Int : 476 ms Sinus bradycardia with 1st degree A-V block Left axis deviation Right bundle branch block Abnormal ECG No previous ECGs available Confirmed by Nathen Aguero ([id number]) on 07/07/2024 1:44:31 PM Referred By: REFERRED SELF Confirmed By: Nathen Aguero
--- NOTE | 2024-07-07 14:28 | Fluoroscopy Report ---
LUMBAR PUNCTURE UNDER FLUOROSCOPY CLINICAL HISTORY: Lower extremity weakness status post flu shot PROCEDURE: Procedure and risks were explained. Informed consent was obtained. A final timeout was com pleted. The patient was placed prone on the fluoroscopic exam table. The lower lumbar region was prep ped and draped in sterile fashion. 1% lidocaine was utilized for skin anesthesia. Utilizing fluoroscopic guidance, a 22-gauge spinal needle was advanced into the intrathecal space at the L2-3 disc space level. Fluoroscopic spot images were obtained. Approximately 8 mL of clear CSF f luid was removed and sent to lab for analysis. The needle was removed and Band-Aid applied. The patie nt tolerated the procedure well. Vital signs will be monitored postprocedure. Fluoroscopy time 27 seconds. Study dosed 30.05 mGy. IMPRESSION: Lumbar puncture as above. Performed, dictated, and signed by Jeremie Newby PA-C; to be co-signed by Dr. Thomas Khanna. Electronically signed by: Thomas Khanna M.D. 07/07/2024 2:36 PM
[2024-07-07 14:44] LABS: Appearance CSF Clear; CSF Count Tube # 3; CSF Xanthrochromic No xanthochromia; Color CSF Colorless; Red Blood Cell CSF Manual 0 (0-); White Blood Cell CSF Manual 1 (0-5)
[2024-07-07 16:06] LABS: Cryptococcus neoformans/ga PCR Not Detected (NotDetected); Cytomegalovirus PCR Not Detected (NotDetected); Enterovirus PCR Not Detected (NotDetected); Escherichia coli K1 PCR Not Detected (NotDetected); Haemophilius influenzae PCR Not Detected (NotDetected); Herpes Simplex Virus 1 PCR Not Detected (NotDetected); Herpes Simplex Virus 2 PCR Not Detected (NotDetected); Human Herpes Virus 6 PCR Not Detected (NotDetected); Human Parechovirus PCR Not Detected (NotDetected); Listeria monocytogenes PCR Not Detected (NotDetected); Neisseria meningitidis PCR Not Detected (NotDetected); Streptococcus agalactiae PCR Not Detected (NotDetected); Streptococcus pneumoniae PCR Not Detected (NotDetected); Varicella Zoster Virus PCR Not Detected (NotDetected)
[2024-07-07] MEDS ORDERED: CYANOCOBALAMIN 1000 MCG/ML VIAL IM ONE (16:08)
[2024-07-07] MEDS ORDERED: LORazepam 1 MG TAB PO PRN ×3 (16:14)
[2024-07-07] MEDS ORDERED: Ativan PO Alcohol Withdrawal--Active Protocol PO PRN (16:14)
[2024-07-07] MEDS: CYANOCOBALAMIN 1000 MCG/ML VIAL IM SCH (16:27)
[2024-07-07] MEDS: MAGNESIUM OXIDE 400 MG TAB PO SCH (20:13)
[2024-07-07] MEDS: ENOXAPARIN INJ 40 MG/0.4 ML SYR SQ SCH (20:13)
[2024-07-08 06:28] LABS: Hematocrit (blood only) 37.4 % (42.0-52.0); Hemoglobin 12.9 g/dl (14.0-18.0); Mean Corpuscular Hemoglobin 34.5 pg (25.0-34.0); Mean Corpuscular Hgb Conc 34.5 g/dL (32.0-36.0); Mean Platelet Volume 11.4 fL (9.4-12.4); Platelet Count 170 K/uL (130-400); RDW Coefficient of Variation 13.6 % (11.5-14.5); RDW Standard Deviation 50.3 fL (36.4-46.3); Red Blood Count 3.74 M/uL (4.70-6.10); White Blood Count 5.33 K/ul (4.8-10.8)
[2024-07-08 06:56] LABS: Albumin Globulin Ratio 1.2 (0.9-2); BUN Creatinine Ratio 16.9 (10-20); Bilirubin,Total 2.5 mg/dl (0.2-1.0); Calcium 8.4 mg/dl (8.6-10.3); Creatinine Clr Calc Pharmacy 126.4 ml/min; Globulin 2.6 gm/dl (2.5-4.0); Magnesium 1.8 mg/dl (1.7-2.4); Potassium 3.3 mmol/L (3.5-5.1); Total Protein 5.6 gm/dl (6.0-8.3)
--- NOTE | 2024-07-08 08:46 | Ultrasound Report ---
ABDOMINAL ULTRASOUND, RIGHT UPPER QUADRANT HISTORY: Transaminitis. COMPARISON: Right upper quadrant ultrasound September 23, 2023. FINDINGS: Hepatic echogenicity is increased. This is similar to prior exam. There is no biliary ducta l dilatation. Common bile duct measures 5 mm in caliber. Sludge and stones within the gallbladder pre sent. A few suspected small gallbladder polyps measure up to 4 mm. There is no gallbladder wall thick ening. No sonographic Lowe sign was elicited. Pancreas is obscured by overlying bowel gas. IMPRESSION: 1. Stones and sludge within the gallbladder. No evidence for acute cholecystitis. 2. No biliary ductal dilatation. 3. Hepatic steatosis. ACT 112: Negative or not required by law. Electronically signed by: Dayo Hills M.D. 07/08/2024 8:43 AM
[2024-07-08 08:48] LABS: Hep B Surface Ag with confirm Negative (Negative)
[2024-07-08] MEDS: FOLIC ACID 1 MG TAB PO SCH (08:50)
[2024-07-08] MEDS: VITAMIN B COMPLEX TAB PO SCH (08:51)
[2024-07-08] MEDS: CEROVITE ADV FORMULA TAB PO SCH (08:52)
[2024-07-08] MEDS: THIAMINE HCL 200 MG in SODIUM CHLORIDE 0.9% 50 ML IV SCH (08:52)
[2024-07-08] MEDS: POTASSIUM CHLORIDE CRTAB 20 MEQ TABCR PO STA (08:52)
[2024-07-08 08:53] LABS: Hep C Ab Rflx HepCQuant RNA Negative (Negative)
[2024-07-08] MEDS: MAGNESIUM SULFATE / D5W 1 GM/100 ML BAG IV SCH (09:18)
--- NOTE | 2024-07-08 11:03 | Hospitalist Progress Note ---
Date of Service July 08, 2024 Assessment & Plan (1) Bilateral leg weakness: (2) Elevated liver function tests: (3) Benign essential hypertension: (4) Hypercholesterolemia: (5) Chronic gout: (6) Rhabdomyolysis: (7) Hepatic steatosis: (8) Polyp of gallbladder: (9) Alcohol use disorder: Plan 68-year-old male with past medical history of hypertension, hyperlipidemia, gout, alcohol use, abnormal LFTs with hepatic steatosis and gallbladder polyp who presents to the ED with worsening bilateral lower extremity weakness with difficulty ambulating since patient had flu shot at his PCP office on July 02, 2024. #Bilateral lower extremity weakness #Rhabdomyolysis Neurology saw the patient Neurology suspects patient may have a form of acute inflammatory neuropathy (Guillain-Marks syndrome or variant) Myositis lab workup sent from ED: Results pending MARGO profile sent on 07/07/2024: Results pending Patient underwent lumbar puncture by IR on 07/07/2024 LP results so far have been unremarkable, no evidence of meningitis CSF LDH and Lyme DNA PCR results pending TSH is 1.77 B12 is 214: B12 supplementation started Hold statin in light of rhabdomyolysis Monitor CK which is improving, hydrate with LR at 100 mL/h Await further neurology recommendations post LP #Abnormal LFTs/transaminitis #Hepatic steatosis #Gallbladder polyp #Alcohol use disorder Alcohol cessation counseling provided [facility] alcohol withdrawal protocol with Ativan as needed Thiamine plus folic acid plus multivitamin Ultrasound of the abdomen reviewed with patient: Shows hepatic steatosis INR is 1.1 Hepatitis screen: Results pending Transaminitis appears to be chronic Monitor LFTs #Essential hypertension #Hyperlipidemia Hold statin for now in light of rhabdomyolysis with elevated CK Continue losartan 25 mg p.o. twice daily 2D echo done: Results pending #History of gout without acute flareup Patient is on colchicine at home Gout likely related to alcohol use #Hypomagnesemia Magnesium replacement Monitor levels CODE STATUS: Full code DVT prophylaxis: Continue Lovenox 40 mg subcutaneous daily Discharge planning Home likely in the next 24 to 48 hours based on CK improvement and neurology recommendations Care plan discussed with patient, nursing staff, updated bedside Admission and Anticipated Discharge Date Admission Date: July 06, 2024 Subjective Patient seen and examined at bedside Labs and LP results reviewed Radiology reviewed Telemetry reviewed Patient walked with physical therapy today and feels better Denies any headache, dizziness, lightheadedness, chest pain, shortness of breath, nausea, vomiting, diarrhea, abdominal pain He verbalizes that he needs to make some lifestyle changes when it comes to alcohol Physical Exam Physical Exam: General: No acute distress Psych: Awake and alert HEENT: Anicteric sclera, moist oral mucosa CVS: Regular rate and rhythm Lungs: Bilateral air entry, no wheezing noted Abdomen: Soft, nontender, no rebound, no guarding Ext: Trace lower extremity pitting edema noted, no calf tenderness Neuro: No focal motor deficits noted Results & Data Results & Data Vital Signs (Past 12 Hours) Vital Signs Temp Pulse Resp BP Pulse Ox O2 Del Method 07/08/24 10:06 Room Air 07/08/24 07:12 36.8 C 64 18 160/88 H 97 Room Air Laboratory Results Laboratory Results - last 24 hr 07/07/24 07/08/24 Unknown 05:50 WBC 5.33 RBC 3.74 L Hgb 12.9 L Hct 37.4 L MCV 100.0 MCH 34.5 H MCHC 34.5 RDW Std Deviation 50.3 H RDW Coeff of Michell 13.6 Plt Count 170 MPV 11.4 Sodium 140 Potassium 3.3 L Chloride 105 Carbon Dioxide 28 Anion Gap 7 BUN 10 Creatinine 0.59 L Est Cr Clr Drug Dosing 126.4 eGFR 105.68 BUN/Creatinine Ratio 16.9 Glucose 82 Calcium 8.4 L Magnesium 1.8 Total Bilirubin 2.5 H AST 212 H ALT 151 H Alkaline Phosphatase 107 H Total Creatine Kinase 993 H Total Protein 5.6 L Albumin 3.0 L Globulin 2.6 Albumin/Globulin Ratio 1.2 Fld Lyme DNA (PCR) Pending Fluid Comment CSF Appearance Clear CSF Color Colorless Xanthrochromic No xanthochromia CSF WBC 1 CSF RBC 0 CSF Cell Count Tube # 3 CSF Chemistry Tube # 1 CSF Glucose 63 CSF LDH Pending CSF Lactate Pending CSF Total Protein 41.0 CSF C.neoform/gat PCR Not Detected CSF CMV DNA (PCR) Not Detected CSF Enterovirus (PCR) Not Detected CSF E. coli K1 (PCR) Not Detected CSF H. influenzae (PCR) Not Detected CSF HSV I (PCR) Not Detected CSF HSV II (PCR) Not Detected CSF HHV 6 (PCR) Not Detected CSF L.monocytogenes PCR Not Detected CSF N. meningitidis PCR Not Detected CSF Parechovirus (PCR) Not Detected CSF S. agalactiae (PCR) Not Detected CSF S. pneumoniae (PCR) Not Detected CSF VZV DNA (PCR) Not Detected Lyme Specimen Source Pending Hepatitis A IgM Ab Pending Hep Bs Antigen Negative Hep B Core IgM Ab Pending Hepatitis C Antibody Negative Diagnostic Findings Lumbar Puncture 07/07/24 09:55 LUMBAR PUNCTURE UNDER FLUOROSCOPY CLINICAL HISTORY: Lower extremity weakness status post flu shot PROCEDURE: Procedure and risks were explained. Informed consent was obtained. A final timeout was completed. The patient was placed prone on the fluoroscopic exam table. The lower lumbar region was prepped and draped in sterile fashion. 1% lidocaine was utilized for skin anesthesia. Utilizing fluoroscopic guidance, a 22-gauge spinal needle was advanced into the intrathecal space at the L2-3 disc space level. Fluoroscopic spot images were obtained. Approximately 8 mL of clear CSF fluid was removed and sent to lab for analysis. The needle was removed and Band-Aid applied. The patient tolerated the procedure well. Vital signs will be monitored postprocedure. Fluoroscopy time 27 seconds. Study dosed 30.05 mGy. IMPRESSION: Lumbar puncture as above. Performed, dictated, and signed by Jeremie Newby PA-C; to be co-signed by Dr. Thomas Khanna. Electronically signed by: Thomas Khanna M.D. 07/07/2024 2:36 PM Abdomen Ultrasound 07/08/24 00:00 ABDOMINAL ULTRASOUND, RIGHT UPPER QUADRANT HISTORY: Transaminitis. COMPARISON: Right upper quadrant ultrasound September 23, 2023. FINDINGS: Hepatic echogenicity is increased. This is similar to prior exam. There is no biliary ductal dilatation. Common bile duct measures 5 mm in caliber. Sludge and stones within the gallbladder present. A few suspected small gallbladder polyps measure up to 4 mm. There is no gallbladder wall thickening. No sonographic Lowe sign was elicited. Pancreas is obscured by overlying bowel gas. IMPRESSION: 1. Stones and sludge within the gallbladder. No evidence for acute cholecystitis. 2. No biliary ductal dilatation. 3. Hepatic steatosis. ACT 112: Negative or not required by law. Electronically signed by: Dayo Hills M.D. 07/08/2024 8:43 AM PG Care Time/CCT Total # of Minutes Spent Total Time Spent with Patient: Total time spent is greater than 50% in coordination of care (as documented) at patient's floor/unit and/or counseling patient: Coding Level of Care Code 09194 SUB INP/OBS CARE 3/50MIN Diagnoses Bilateral leg weakness R29.898 Elevated liver function tests R79.89 Benign essential hypertension I10 Hypercholesterolemia E78.00 Chronic gout [id number].[id number] Rhabdomyolysis M62.82 Rhabdomyolysis type: non-traumatic Hepatic steatosis K76.0 Polyp of gallbladder K82.4 Alcohol use disorder F10.90 (6) Rhabdomyolysis Rhabdomyolysis type: non-traumatic Qualified Code(s): M62.82 - Rhabdomyolysis
--- NOTE | 2024-07-08 11:26 | Neurology Progress Note ---
Date of Service July 08, 2024 Assessment & Plan (1) Weakness: (2) Rhabdomyolysis: (3) Elevated liver function tests: Plan The patient has a relatively acute (possibly subacute) onset of weakness roughly a week and a half post flu shot. On examination today, his strength has improved (mildly, but noticeably) since yesterday. Certainly, a form of acute inflammatory neuropathy is possible, but there is no evidence to support a typical Guillain-Marks syndrome diagnosis. With his significantly elevated CK, an inflammatory myopathy cannot be excluded, although he does have distal weakness and his sed rate is not significantly elevated. The patient has chronically elevated liver enzymes and does have significant alcohol usage. An alcoholic neuromyopathy is possible. He is doing reasonably well and still able to ambulate. He does not have any cranial nerve issues and he has no breathing problems. Recommendations: 1. He understands the importance of discontinuing alcohol. 2. Awaiting pending laboratory studies 3. I see no need for neuroimaging at this time 4. EMG and nerve conduction studies could be obtained as an outpatient 5. There is no indication for IVIG or any other specific medication treatment from a neurologic standpoint. 6. Continue physical therapy for strengthening and gait 7. Follow-up with neurology as an outpatient with one of the neurology PAs in the next 2-3 weeks Overall, I spent a total of 35minutes with this case including review of records, direct evaluation the patient at bedside, report generation, and discussion of the case with the patient at bedside and Dr. Jensen, including differential diagnosis and treatment options. Admission and Anticipated Discharge Date Admission Date: July 06, 2024 Subjective Patient is feeling a little bit better today and he was up walking the halls without too much difficulty. He denies any pain or headache. He still feels a little weak in his legs and is not back to baseline. He he feels that his arms are strong. Lumbar puncture was performed July 07 and there was 1 white cell, no red cells, glucose of 63 and a CSF protein of 41. The fluid was clear and colorless and without xanthochromia. Laboratory studies for myositis antibodies and rheumatologic/immunologic conditions are all pending. Blood pressure was 160/88 and he is afebrile CK was 993 today. B12 and folate were unremarkable. Lyme antibody titers pending. Results & Data Vital Signs (Past 12 Hours) Vital Signs Temp Pulse Resp BP Pulse Ox O2 Del Method 12/04/24 10:06 Room Air 07/08/24 07:12 36.8 C 64 18 160/88 H 97 Room Air Exam (Neuro) Physical Exam: He is awake and alert. Speech is without aphasia or dysarthria. Mood and affect are normal and appropriate. Thought processes are reasonable to conversation. Extraocular eye muscles are intact without nystagmus. There is no facial droop and tongue is midline Stance sitting up in bed is normal Coordination is normal in the arms without tremor or ataxia. Motor strength is essentially 5/5 diffusely in all major muscle groups in the arms both proximally and distally. Strength is 4+/5 proximally in the legs bilaterally. The right tibialis anterior was 4/5 in the left was 4+/5. PG Care Time/CCT Total # of Minutes Spent Total Time Spent with Patient: Total time spent is greater than 50% in coordination of care (as documented) at patient's floor/unit and/or counseling patient: Coding Level of Care Code 57732 SUB INP/OBS CARE 2/35MIN Diagnoses Weakness R53.1 Rhabdomyolysis M62.82 Rhabdomyolysis type: non-traumatic Elevated liver function tests R79.89 (2) Rhabdomyolysis Rhabdomyolysis type: non-traumatic Qualified Code(s): M62.82 - Rhabdomyolysis
--- NOTE | 2024-07-08 12:23 | XCELERA ---
[id number]
[2024-07-09 06:36] LABS: Albumin Globulin Ratio 1.1 (0.9-2); Albumin Level 2.7 gm/dl (3.4-5.0); BUN Creatinine Ratio 18.5 (10-20); Bilirubin,Total 1.8 mg/dl (0.2-1.0); Calcium 8.1 mg/dl (8.6-10.3); Creatinine Clr Calc Pharmacy 138.1 ml/min; Globulin 2.4 gm/dl (2.5-4.0); Magnesium 1.8 mg/dl (1.7-2.4); Potassium 3.4 mmol/L (3.5-5.1); Total Protein 5.1 gm/dl (6.0-8.3)
[2024-07-09 07:08] VITALS: TEMP 98.1; O2SAT 97
--- NOTE | 2024-07-09 09:09 | Neurology Progress Note ---
Date of Service July 09, 2024 Assessment & Plan (1) Weakness: (2) Rhabdomyolysis: (3) Elevated liver function tests: Plan The patient has a relatively acute (possibly subacute) onset of weakness roughly a week and a half post flu shot. Further history (with the patient's present) suggests that he likely has had some mild weakness for many months prior. On examination today, his strength has improved some since since admission, particularly in the arms. Certainly, a form of acute inflammatory neuropathy is possible, but there is no solid evidence to support a typical Guillain-Marks syndrome diagnosis. Except for absent ankle reflexes (which could be from any type of neuropathy) he has preserved reflexes, which would point away from Guillain-Marks syndrome. With his significantly elevated CK, an inflammatory myopathy cannot be excluded, although he does have distal weakness and his sed rate is not significantly elevated. The patient has chronically elevated liver enzymes and does have significant alcohol usage. An alcoholic neuromyopathy is possible. He is doing reasonably well and still able to ambulate. He does not have any cranial nerve issues and he has no breathing problems. Recommendations: 1. He understands the importance of discontinuing alcohol. 2. Awaiting pending laboratory studies for myositis and immunologic/rheumatologic conditions 3. There is no need for neuroimaging at this time 4. EMG and nerve conduction studies to be obtained as an outpatient with [facility] neurology. I would study 1 arm and both legs. 5. There is no indication for IVIG or any other specific medication treatment from a neurologic standpoint. 6. Continue physical therapy for strengthening and gait 7. Follow-up with neurology as an outpatient with one of the neurology PAs in the next 2-3 weeks Overall, I spent a total of 50 minutes with this case including review of records, direct evaluation the patient at bedside, report generation, and discussion of the case with the patient at bedside and Dr. Jensen, including differential diagnosis and treatment options. Admission and Anticipated Discharge Date Admission Date: July 06, 2024 Subjective Patient is accompanied by his spouse at bedside. He feels a little stronger in general compared to admission but still feels that his legs are weak. His balance is still not as good as it used to be. He denies pain or numbness. Blood pressure is 167/82 with a pulse in the 50s and he is afebrile. Echocardiogram was largely unremarkable although there was some mild mitral regurgitation Abdominal ultrasound showed gallstones and hepatic steatosis Results & Data Vital Signs (Past 12 Hours) Vital Signs Temp Pulse Resp BP Pulse Ox O2 Del Method 07/09/24 07:07 36.7 C 54 L 16 167/82 H 97 Room Air 07/08/24 22:02 Room Air Exam (Neuro) Physical Exam: He is awake and alert. Speech is without aphasia or dysarthria. Mood is normal and affect is appropriate. Thought processes are intact to conversation Extraocular muscles are intact without nystagmus. There is no facial droop and tongue is midline. Strength is essentially 5/5 diffusely in the upper extremities except for some slight decreased clinical administrator strength bilaterally. Motor strength is 4/5 in the legs both proximally and distally. Reflexes are 1/4 in the biceps, triceps, and brachioradialis tendons bilaterally. They are increased with reinforcement maneuvers. Quadriceps tendon reflexes are trace bilaterally but brought out with reinforcement maneuvers. Achilles tendon reflexes are absent bilaterally. PG Care Time/CCT Total # of Minutes Spent Total Time Spent with Patient: Total time spent is greater than 50% in coordination of care (as documented) at patient's floor/unit and/or counseling patient: Coding Level of Care Code 65059 SUB INP/OBS CARE 3/50MIN Diagnoses Weakness R53.1 Rhabdomyolysis M62.82 Rhabdomyolysis type: non-traumatic Elevated liver function tests R79.89 Time Spent (min) 50 (2) Rhabdomyolysis Rhabdomyolysis type: non-traumatic Qualified Code(s): M62.82 - Rhabdomyolysis
[2024-07-09] MEDS: MAGNESIUM SULFATE / D5W 1 GM/100 ML BAG IV SCH (09:12)
[2024-07-09] MEDS: POTASSIUM CHLORIDE CRTAB 20 MEQ TABCR PO STA ×2 (09:12→12:33)
[2024-07-09 09:19] VITALS: BP 154/88; PULSE 58; RESP 18
--- NOTE | 2024-07-09 11:42 | Discharge Summary ---
Discharge Summary Date of Service July 09, 2024 Principal Dx & Hospital Course #1 = Principal Diagnosis (1) Bilateral leg weakness: (2) Elevated liver function tests: (3) Benign essential hypertension: (4) Hypercholesterolemia: (5) Chronic gout: (6) Rhabdomyolysis: (7) Hepatic steatosis: (8) Polyp of gallbladder: (9) Alcohol use disorder: Plan 68-year-old male with past medical history of hypertension, hyperlipidemia, gout, alcohol use, abnormal LFTs with hepatic steatosis and gallbladder polyp who presents to the ED with worsening bilateral lower extremity weakness with difficulty ambulating since patient had flu shot at his PCP office on July 02, 2024. #Bilateral lower extremity weakness #Rhabdomyolysis Neurology saw the patient Neurology suspects patient may have a form of acute inflammatory neuropathy but there is no solid evidence to support a typical Guillain-Marks syndrome diagnosis. Myositis lab workup sent from ED: Results pending MARGO profile sent on 07/07/2024: Results pending Patient underwent lumbar puncture by IR on 07/07/2024 LP results so far have been unremarkable, no evidence of meningitis CSF LDH and Lyme DNA PCR results pending TSH is 1.77 B12 is 214: Continue vitamin B complex. Patient received IM B12 supplementation Hold statin in light of rhabdomyolysis CK levels have improved with IV fluid hydration but not completely normal He was seen by neurology who recommended outpatient EMG and nerve conduction studies, no indication for IVIG at this point and for patient to follow-up with neurology as an outpatient in 2 to 3 weeks time #Abnormal LFTs/transaminitis #Hepatic steatosis #Gallbladder polyp #Alcohol use disorder Alcohol cessation counseling provided Patient to continue with multivitamin and B complex Ultrasound of the abdomen reviewed with patient: Shows hepatic steatosis INR is 1.1 Hepatitis screen: Hep C is negative, hep B core antibody and hepatitis A IgM results are still pending Transaminitis appears to be chronic Outpatient follow-up with PCP for referral to hepatology as outpatient and monitoring of LFTs #Essential hypertension #Hyperlipidemia #Mild mitral regurgitation Hold statin for now in light of rhabdomyolysis with elevated CK Continue losartan 25 mg p.o. twice daily 2D echo showed left ventricular systolic function is normal, no regional wall motion abnormalities noted, left ventricular ejection fraction is 55 to 60%. There is mild mitral regurgitation. #History of gout without acute flareup Continue colchicine per home dose and outpatient follow-up with PCP #Hypomagnesemia #Hypokalemia Improved with oral potassium and magnesium replacement Outpatient follow-up with PCP to monitor levels Patient seen and examined today. He was seen by physical therapy who cleared him for discharge home. He has also been cleared by neurology. I spoke with neurologist yesterday who recommended no driving until patient follows up with neurology as outpatient. I have gone over the care plan with the patient and his was at the bedside in great detail and answered all their questions. Patient and are aware to follow-up with her PCP and neurology to follow-up on the pending test results This discharge took greater than 30 minutes to coordinate Admission HPI Per Admitting Provider Jason Mcintosh is a 68 year old male who presents to the ER with bilateral lower extremity weakness. He reports this started 4 days ago on Saturday with progressively worse weakness throughout the day and he had to ask his for a cane to walk by the end of the day. No pain, numbness or tingling just mainly a peripheral muscle leg weakness. No weakness in his upper extremity. He is left handed and the left side seems worse than the right but both are much worse than baseline. He notes recently have the influenza vaccine on June 24 and felt fatigued and worn out for 4 days following this with some associated diarrhea. On June 29 he had to stand for a long time for a memorial service and was unable to due to his legs feeling like they were going to give way however he seemed to improve from these events with suddenly getting worse last Saturday as described above. No recent changes of medications (atorvastatin has been long standing). No fever, chills, respiratory or urinary symptoms. No change in speech, hearing or vision. Apart from the diarrhea no other gastrointestinal symptoms. No family or personal history of autoimmune disease. He drinks alcohol daily with 2 beers a day and a spirit before bed. He occasionally will give up for lent without any concerns for withdrawal. Discharge Exam General: No acute distress Psych: Awake and alert HEENT: Anicteric sclera, moist oral mucosa CVS: Regular rate and rhythm Lungs: Bilateral air entry, no wheezing noted Abdomen: Soft, nontender, no rebound, no guarding Ext: Trace lower extremity pitting edema noted, no calf tenderness Neuro: No focal motor deficits noted Discharge Plan Discharge Items Patient Disposition: Home - Self-Care Reason For Visit: BILATERAL LOWER EXTERMITY WEAKNESS Discharge Diagnosis: #Rhabdomyolysis #Abnormal LFTs/transaminitis #Hepatic steatosis #Gallbladder polyp #Alcohol use disorder #Essential hypertension #Hyperlipidemia #History of gout without acute flareup #Hypomagnesemia Condition on Discharge: Fair Activity: As commented below Activity Comment: As tolerated, no driving until cleared by neurology on follow- up Driving/Machine Use: No driving until cleared by neurology on follow-up as outpatient Non-emergency contact: Primary Care Provider Call non-emergency contact if: you have any medication questions and you have a fever Follow-up/Referrals: José Antonio Vásquez MD [Physician] - Tenzin Mendoza III, CRNP [Primary Care Provider] - Diet: Heart Healthy Addtl Attending Provider Instructions: DISCHARGE INSTRUCTION TO PATIENT/FAMILY: Follow-up with your primary care provider within 1 week regarding: Posthospital discharge, medication review, medication refills and follow-up on all your medical problems, Labs, pending test results, blood pressure monitoring Please take all your discharge medications, discharge information and discharge instructions to all your doctors appointments. Avoid all NSAIDs including ibuprofen, Motrin, Advil, Aleve, naproxen, meloxicam, Toradol, diclofenac The following test results are still pending: MARGO, myositis specific antibody panel, hepatitis A IgM, hepatitis B core antibody, Lyme PCR from CSF, CSF LDH, CSF cytology. Please follow-up with your primary care doctor or neurologist as outpatient for these test results Follow-up with neurologist as outpatient in 1 to 2 weeks time for review, follow-up and clearance to drive. In the meantime please do not drive. Avoid all alcohol You have a large fatty liver: Follow-up with your primary care doctor for referral to liver specialist as outpatient Labs through PCP in 1 week: CBC, CMP, MG, CPK, VITAMIN D Pending Studies at Discharge: Yes (MARGO, myositis specific antibody panel, Lyme PCR from CSF, CSF LDH) Studies:: MARGO, myositis specific antibody panel, Lyme PCR from CSF, CSF LDH, CSF cytology Stand-Alone Forms: [employer], Smoking Cessation Medications and DC Order Prescriptions: New vitamin B complex [Vitamins B Complex] Capsule 1 cap PO QAM Qty: 30 0RF Rx Instructions: Available ehlt-lki-plcyqwr Cerovite Senior 0.4 mg-300 mcg- 250 mcg Tablet 1 tab PO QAM Qty: 30 0RF Rx Instructions: Available ifwk-svg-glgqjkc magnesium oxide 400 mg (241.3 mg magnesium) Tablet 400 mg PO BID Qty: 14 0RF Rx Instructions: Available wfnt-tnt-dxqbgag, take for 1 week and have repeat labs through PCP Continued Suflave 178.7-7.3-0.5 gram recon soln See Rx Instructions PO .COMPLEX Qty: 2 0RF Rx Instructions: orally; TAKE FIRST DOSE AT 6 PM AND SECOND DOSE 6 HOURS PRIOR TO PROCEDURE BIN: [id number] N: 2000 GROUP: [id number] colchicine 0.6 mg tablet 0.6 mg PO BID Qty: 180 3RF aspirin 81 mg tablet,delayed release (DR/EC) 81 mg PO QAM Qty: 30 omega 7-otw-pjd-fish oil [Fish Oil] 1,000 mg (120 mg-180 mg) Capsule 1 cap PO Q2D losartan 25 mg tablet 25 mg PO BID Held atorvastatin 10 mg tablet 10 mg PO QAM Qty: 90 3RF Hold Instructions: Resume on 07/20/24. Please follow-up with your PCP to repeat lab work and resume medication based on repeat labs and PCP recommendations Discharge Orders: Discharge Order (Routine); Ordered 07/09/24 Ordered By: Lemuel Jensen Admission Data Admit Date/Time: 07/06/24 19:12 Attending Provider: Lemuel Jensen Admit Provider: Rivas Palmer Primary Care Provider: Tenzin Mendoza III Other Providers: Rivas Palmer; José Antonio Vásquez Hospital Stay Data Consultations 07/06/24 18:24 ED Decision to Admit Stat 07/06/24 21:14 Consult Neurology Routine Diagnostic Imagining Performed 07/06/24 17:21 CT head/brain wo con Stat 07/07/24 09:55 IR lumbar puncture diagnostic Routine 07/08/24 US abdomen limited Urgent Chest X-Ray 07/06/24 15:25 XR chest 1V not portable HISTORY: 68 years-old Male Weakness COMPARISON: None TECHNIQUE: PA view of chest FINDINGS: Metallic density coil type devices project over the upper chest. Cortex silhouette is upper limits of normal in size. Mild right hemidiaphragmatic elevation. No pneumothorax, pleural effusion or airspace consolidation. Bones appear grossly intact. IMPRESSION: No acute process. ACT 112: Negative or not required by law. The above report was generated using voice recognition software. It may contain grammatical, syntax or spelling errors. Electronically signed by: Thomas Khanna M.D. 07/06/2024 4:[address] 07/06/24 17:21 INDICATION: Bilateral leg numbness. COMPARISON: No relevant priors available TECHNIQUE: Axial CT images of the head were obtained without IV contrast. Coronal and sagittal reformations were reviewed. FINDINGS: Cedeño-white differentiation is relatively preserved. No mass, mass effect or midline shift. Mild chronic ischemic white matter changes. Mild frontal cortical atrophy. No evidence of acute large territorial infarction or acute intracranial hemorrhage. Ventricles appear normal in size. Basal cisterns are patent. No depressed calvarial fracture. IMPRESSION: No acute intracranial process. Electronically signed by [place]ch [place] 07-06-2024 5:45 PM Lumbar Puncture 07/07/24 09:55 LUMBAR PUNCTURE UNDER FLUOROSCOPY CLINICAL HISTORY: Lower extremity weakness status post flu shot PROCEDURE: Procedure and risks were explained. Informed consent was obtained. A final timeout was completed. The patient was placed prone on the fluoroscopic exam table. The lower lumbar region was prepped and draped in sterile fashion. 1% lidocaine was utilized for skin anesthesia. Utilizing fluoroscopic guidance, a 22-gauge spinal needle was advanced into the intrathecal space at the L2-3 disc space level. Fluoroscopic spot images were obtained. Approximately 8 mL of clear CSF fluid was removed and sent to lab for analysis. The needle was removed and Band-Aid applied. The patient tolerated the procedure well. Vital signs will be monitored postprocedure. Fluoroscopy time 27 seconds. Study dosed 30.05 mGy. IMPRESSION: Lumbar puncture as above. Performed, dictated, and signed by Jeremie Newby PA-C; to be co-signed by Dr. Thomas Khanna. Electronically signed by: Thomas Khanna M.D. 07/07/2024 2:36 PM Abdomen Ultrasound 07/08/24 00:00 ABDOMINAL ULTRASOUND, RIGHT UPPER QUADRANT HISTORY: Transaminitis. COMPARISON: Right upper quadrant ultrasound September 23, 2023. FINDINGS: Hepatic echogenicity is increased. This is similar to prior exam. There is no biliary ductal dilatation. Common bile duct measures 5 mm in caliber. Sludge and stones within the gallbladder present. A few suspected small gallbladder polyps measure up to 4 mm. There is no gallbladder wall thickening. No sonographic Lowe sign was elicited. Pancreas is obscured by overlying bowel gas. IMPRESSION: 1. Stones and sludge within the gallbladder. No evidence for acute cholecystitis. 2. No biliary ductal dilatation. 3. Hepatic steatosis. ACT 112: Negative or not required by law. Electronically signed by: Dayo Hills M.D. 07/08/2024 8:43 AM Laboratory Results - last 48 hr 07/07/24 07/08/24 07/09/24 Unknown 05:50 05:37 WBC 5.33 RBC 3.74 L Hgb 12.9 L Hct 37.4 L MCV 100.0 MCH 34.5 H MCHC 34.5 RDW Std Deviation 50.3 H RDW Coeff of Michell 13.6 Plt Count 170 MPV 11.4 Sodium 140 140 Potassium 3.3 L 3.4 L Chloride 105 106 Carbon Dioxide 28 29 Anion Gap 7 5 BUN 10 10 Creatinine 0.59 L 0.54 L Est Cr Clr Drug Dosing 126.4 138.1 eGFR 105.68 108.55 BUN/Creatinine Ratio 16.9 18.5 Glucose 82 86 Calcium 8.4 L 8.1 L Magnesium 1.8 1.8 Total Bilirubin 2.5 H 1.8 H AST 212 H 167 H ALT 151 H 132 H Alkaline Phosphatase 107 H 104 Total Creatine Kinase 993 H 808 H Total Protein 5.6 L 5.1 L Albumin 3.0 L 2.7 L Globulin 2.6 2.4 L Albumin/Globulin Ratio 1.2 1.1 Fluid Comment CSF Appearance Clear CSF Color Colorless Xanthrochromic No xanthochromia CSF WBC 1 CSF RBC 0 CSF Cell Count Tube # 3 CSF Chemistry Tube # 1 CSF Glucose 63 CSF Total Protein 41.0 CSF C.neoform/gat PCR Not Detected CSF CMV DNA (PCR) Not Detected CSF Enterovirus (PCR) Not Detected CSF E. coli K1 (PCR) Not Detected CSF H. influenzae (PCR) Not Detected CSF HSV I (PCR) Not Detected CSF HSV II (PCR) Not Detected CSF HHV 6 (PCR) Not Detected CSF L.monocytogenes PCR Not Detected CSF N. meningitidis PCR Not Detected CSF Parechovirus (PCR) Not Detected CSF S. agalactiae (PCR) Not Detected CSF S. pneumoniae (PCR) Not Detected CSF VZV DNA (PCR) Not Detected Hep Bs Antigen Negative Hepatitis C Antibody Negative Pending Results Patient Have Any Pending Studies at Discharge: Yes (MARGO, myositis specific antibody panel, Lyme PCR from CSF, CSF LDH) Discharge Instructions Given to Patient (Per Discharging Provider) DISCHARGE INSTRUCTION TO PATIENT/FAMILY: Follow-up with your primary care provider within 1 week regarding: Posthospital discharge, medication review, medication refills and follow-up on all your medical problems, Labs, pending test results, blood pressure monitoring Please take all your discharge medications, discharge information and discharge instructions to all your doctors appointments. Avoid all NSAIDs including ibuprofen, Motrin, Advil, Aleve, naproxen, meloxicam, Toradol, diclofenac The following test results are still pending: MARGO, myositis specific antibody panel, hepatitis A IgM, hepatitis B core antibody, Lyme PCR from CSF, CSF LDH, CSF cytology. Please follow-up with your primary care doctor or neurologist as outpatient for these test results Follow-up with neurologist as outpatient in 1 to 2 weeks time for review, follow-up and clearance to drive. In the meantime please do not drive. Avoid all alcohol You have a large fatty liver: Follow-up with your primary care doctor for referral to liver specialist as outpatient Labs through PCP in 1 week: CBC, CMP, MG, CPK, VITAMIN D Total Time Total Time Spent Total Time Spent (In Minutes): 38 minutes Coding Level of Care Code 62303 INP/OBS DISCH >30 MIN Diagnoses Bilateral leg weakness R29.898 Elevated liver function tests R79.89 Benign essential hypertension I10 Hypercholesterolemia E78.00 Chronic gout [id number] Rhabdomyolysis M62.82 Rhabdomyolysis type: non-traumatic Hepatic steatosis K76.0 Polyp of gallbladder K82.4 Alcohol use disorder F10.90
[2024-07-10 14:02] LABS: Hepatitis A Antibody IgM NON-REACTIVE (NON-REACTIVE); Hepatitis B Core Antibody IgM NON-REACTIVE (NON-REACTIVE)
[2024-07-13 13:47] LABS: Anti Cardiolipin Ab IgG <2.0 GPL-U/mL; Anti Cardiolipin Ab IgM 20.2 MPL-U/mL; Anti Nuclear Antibody Screen NEGATIVE (NEGATIVE); Anti-Centromere Ab <1.0 NEG AI (<1.0 NEG); Anti-SS-A <1.0 NEG AI (<1.0 NEG); Anti-SS-B <1.0 NEG AI (<1.0 NEG); Chromatin Antibody <1.0 NEG AI (<1.0 NEG); Complement C3 120 mg/dL (82-185); DNA ds Crithidia NEGATIVE (NEGATIVE); Microsomal Ab 1 IU/mL (<9); RNP Antibody 1.1 POS AI (<1.0 NEG); Sm Antibody <1.0 NEG AI (<1.0 NEG)
[2024-07-15 00:18] LABS: CSF, LDH 26 U/L (<=25); Lyme DNA PCR CSF or Synovial Not Detected (Not Detected); Lyme DNA Source CSF
[2024-07-16 17:52] LABS: Cytosolic 5 Nucleotidas E 1A 8 Units; EJ Ab <11 SI (<11); HMGCR Ab <2 CU (<20); JO-1 Antibody <11 SI (<11); MDA5 Ab <11 SI (<11); MI-2 Alpha Ab <11 SI (<11); MI-2 Beta Ab <11 SI (<11); NXP-2 Ab (MJ Ab) <11 SI (<11); OJ Ab <11 SI (<11); PL-12 Ab <11 SI (<11); PL-7 Ab <11 SI (<11); SRP Ab <11 SI (<11); TIF1 Gamma Ab <11 SI (<11)
== END 2024-07-09 16:16 | disposition home or self-care (01) | DRG 556 ==
LOC: SUATTDRO → ED 15:10 → EDINP 19:12 → SUATTDRO 19:12 → 3E 21:14